=== PATIENT | female | born 1995 | race Caucasian/White ===

== ENCOUNTER 2019-12-13 12:03 | Emergency (ER) | payer OTHER, BC ==
[~2019-12-13] VITALS: Ht 157.5 cm; Wt 90.3 kg
[2019-12-13 12:10] VITALS: Ht 157.5 cm; Wt 90.3 kg
[2019-12-13 15:23] VITALS: BP 119/75
== END 2019-12-13 15:23 | disposition home or self-care (01) ==
LOC: ED 12:03
DX: R51 Headache (principal)